=== PATIENT | female | born 2000 | race Caucasian/White ===

== ENCOUNTER 2021-01-28 08:28 | Outpatient (REF) | payer OTHER, SELFPAY | END 2021-01-28 08:29 | disposition home or self-care (01) | LOC: HO.LAB 08:28 | PROVIDERS: Visit Provider Internal Medicine | DX: Z20.822 Contact with and (suspected) exposure to COVID-19 (principal) | CPT/HCPCS: C9803; U0003; U0005 ==

== ENCOUNTER 2021-11-26 09:20 | Emergency (ER) | payer OTHER, SELFPAY ==
--- NOTE | ~2021-11-26 | XR_ITS ---
EXAMINATION: XR SHOULDER RIGHT XR HUMERUS RIGHT CLINICAL INFORMATION: Pain of upper extremity. Injury. COMPARISON: None TECHNIQUE: Right shoulder, 3 views Right humerus, 2 views FINDINGS: Right shoulder: Bones, joints and soft tissues are normal. The humeral head is well-positioned over the intact glenoid. No calcium deposition within rotator cuff tendons. The visualized right lung is normal. Right humerus: The humerus has normal shape, and alignment is normal at the glenohumeral joint and elbow. No fracture or periostitis. The soft tissues are normal. XR/XR shoulder RT min 2V IMPRESSION: Normal radiographic examinations of the right shoulder and right upper extremity.
--- NOTE | ~2021-11-26 | XR_ITS ---
EXAMINATION: XR SHOULDER RIGHT XR HUMERUS RIGHT CLINICAL INFORMATION: Pain of upper extremity. Injury. COMPARISON: None TECHNIQUE: Right shoulder, 3 views Right humerus, 2 views FINDINGS: Right shoulder: Bones, joints and soft tissues are normal. The humeral head is well-positioned over the intact glenoid. No calcium deposition within rotator cuff tendons. The visualized right lung is normal. Right humerus: The humerus has normal shape, and alignment is normal at the glenohumeral joint and elbow. No fracture or periostitis. The soft tissues are normal. XR/XR humerus RT IMPRESSION: Normal radiographic examinations of the right shoulder and right upper extremity.
[2021-11-26 09:42] VITALS: BP 118/68; PULSE 95; RESP 18; TEMP 36.7; O2SAT 100; BMI 20.2
--- NOTE | 2021-11-26 11:31 | ED_ITS ---
HPI - Extremity Problem General Chief complaint: Extremity Injury, Upper <Alesia Marie FAHAD Serrato - Last Filed: 11/26/21 15:55> Stated complaint: Dislocated R shoulder <Alesiadari Serrato CNP - Last Filed: 11/26/21 15:55> Time Seen by Provider: 11/26/21 10:50 <Alesia Serrato CNP - Last Filed: 11/26/21 15:55> Source: patient <Alesia Adair FAHAD Serrato - Last Filed: 11/26/21 15:55> Mode of arrival: ambulatory <Alesia Tovarmargy Serrato CNP Sirisha Last Filed: 11/26/21 15:55> Limitations: no limitations <Alesia Tovarmargy Serrato CNP - Last Filed: 11/26/21 15:55> History of Present Illness HPI Narrative: Patient presents emergency department for evaluation of right shoulder pain. Reports 5 days ago at work a heavy box fell onto her right shoulder. The following day she subsequently developed pain. Three days ago she was evaluated at an urgent care and given a prescription for a muscle relaxer, uncertain of the name, but states that this did not improve her pain. She is having difficulty moving the arm/shoulder. Denies any numbness or tingling to the extremity, no cold sensation to the lower arm. Denies any prior injury to the shoulder <Alesiadari Serrato CNP - Last Filed: 11/26/21 15:55> Related Data Home medications: Previous Rx's Medication Instructions Recorded naproxen 500 mg tablet 500 mg PO BID PRN pain 5 days #10 11/26/21 tabs <Alesiadari Serrato CNP - Last Filed: 11/26/21 15:55> Allergies/Adverse reactions: Allergies Allergy/AdvReac Type Severity Reaction Status Date / Time No Known Allergies Allergy Verified 11/26/21 09:42 <Alesia Serrato CNP - Last Filed: 11/26/21 15:55> Review of Systems Review of Systems: Musculoskeletal: Positive shoulder pain <FAHAD Church Last Filed: 11/26/21 15:55> [facility] Past Medical History Attestation statement: The following information was validated with the patient. <Alesia Serrato CNP - Last Filed: 11/26/21 15:55> Source: old records reviewed <Alesia SerratoFAHAD - Last Filed: 11/26/21 15:55> Social History Social History: Social History Advance Directives: No Advance Directives Information Provided: No <Alesia SerratoFAHAD - Last Filed: 11/26/21 15:55> Physical Exam Vital Signs: Vital Signs: Last Vital Signs Temp 98.1 F 11/26/21 09:42 Pulse 95 11/26/21 09:42 Resp 18 11/26/21 09:42 BP 118/68 11/26/21 09:42 Pulse Ox 100 11/26/21 09:42 BMI result Body Mass Index 20.2 <Alesia SerratoFAHAD - Last Filed: 11/26/21 15:55> Vital Signs: Last Vital Signs Temp 98.1 F 11/26/21 09:42 Pulse 95 11/26/21 09:42 Resp 18 11/26/21 09:42 BP 118/68 11/26/21 09:42 Pulse Ox 100 11/26/21 09:42 BMI result Body Mass Index 20.2 <Kamari Ibrahim MD - Last Filed: 11/26/21 11:55> Appearance: Alert.?Oriented to person, place and time. No acute distress.?Normal affect. Eyes: Pupils equal, round and reactive to light.? ENT: Pharynx normal.?? Neck: Normal inspection.? Neck supple.?? CVS: Heart sounds normal. Normal heart rate and rhythm.? Pulses normal.?? Respiratory: No respiratory distress.? Lung sounds clear to auscultation bilaterally?? Abdomen: Soft and non-tender. Normoactive bowel sounds. Skin: Skin warm and dry.? Normal skin color.? Extremities: No lower extremity edema.? Right shoulder with no bony step-offs or crepitus, point tenderness along the biceps tendon, decreased AROM and pain with minimal movement Neuro: Moves all extremities spontaneously. Sensation intact bilaterally. No focal neuro deficits. Ambulates with normal steady gait. <Alesia MolinaFAHAD monique - Last Filed: 11/26/21 15:55> Course Course Course Narrative: Patient is a 21-year-old female being evaluated for traumatic right shoulder pain. XR of the right shoulder and humerus are unremarkable for any acute fracture or dislocation. Not consistent with AC joint separation. Physical exam consistent with biceps tendinitis and bursitis. patient denies any possibility of , had testing 3 days ago. Patient to receive ketorolac IM while in the emergency department. Discussed plan of care for discharge home with anti-inflammatories, follow up with primary care provider, discussed worrisome signs and symptoms return back to emergency department for, gentle stretching and exercise, all questions were answered. <Alesia Serrato CNP - Last Filed: 11/26/21 15:55> Reevaluation(s) Reevaluation #1: I agree with the history and physical and plan. patient with biceps tendonitis and shoulder bursitis. Will treat with high dose antiiflammatories <Kamari Ibrahim MD - Last Filed: 11/26/21 11:55> Time: 11:55 <Kamari Ibrahim MD - Last Filed: 11/26/21 11:55> MDM - Extremity (Nontraumatic) Imaging Data XR R shoulder: Radiologist's impression: FINDINGS: Right shoulder: Bones, joints and soft tissues are normal. The humeral head is well-positioned over the intact glenoid. No calcium deposition within rotator cuff tendons. The visualized right lung is normal. Right humerus: The humerus has normal shape, and alignment is normal at the glenohumeral joint and elbow. No fracture or periostitis. The soft tissues are normal.? XR/XR shoulder RT min 2V IMPRESSION: Normal radiographic examinations of the right shoulder and right upper extremity.? <Alesia Serrato CNP - Last Filed: 11/26/21 15:55> Discharge Plan Discharge Clinical Impression: Biceps tendinitis, Bursitis <Alesia Serrato CNP - Last Filed: 11/26/21 15:55> Patient Disposition: Home, Self-Care <Alesia Serrato CNP - Last Filed: 11/26/21 15:55> Instructions: Tendinitis (ED), Exercises for Shoulder Flexion and Extension (ED), Exercises for Internal and External Shoulder Rotation (ED), Exercises for Shoulder Abduction and Adduction (ED) <Alesia Serrato CNP - Last Filed: 11/26/21 15:55> Additional Instructions: You have been given a prescription for anti-inflammatories to use twice daily, do not use additional [id number] ibuprofen/Motrin, Aleve, or aspirin while taking this medication. You may continue using ice/heat. Engage in gentle stretching and movement of your shoulder to prevent any stiffening. Follow-up with your primary care provider as needed. <Alesia Serrato CNP - Last Filed: 11/26/21 15:55> Prescriptions: New naproxen 500 mg tablet 500 mg PO BID PRN (Reason: pain) 5 Days Qty: 10 0RF <Alesia Serrato CNP - Last Filed: 11/26/21 15:55> Stand Alone Forms: Work/School Release <Alesia Serrato CNP - Last Filed: 11/26/21 15:55> Interventions: ED Discharge Assessment Last Done: 11/26/21 12:30 <Alesia Serrato CNP - Last Filed: 11/26/21 15:55> Discharge Date/Time: 11/26/21 12:31 <Alesia Serrato CNP - Last Filed: 11/26/21 15:55>
[2021-11-26] MEDS: Ketorolac Tromethamine 60 MG/2 ML VIAL IM (12:19)
== END 2021-11-26 12:31 | disposition home or self-care (01) ==
PROVIDERS: Emergency Provider Emergency Medicine
DX: Z04.2 Encounter for examination and observation following work accident (principal); M75.21 Bicipital tendinitis, right shoulder; M75.51 Bursitis of right shoulder
CPT/HCPCS: 73030; 73060; 96372; 99283; 99284; J1885

== ENCOUNTER 2022-06-05 09:23 | Emergency (ER) | payer OTHER, SELFPAY ==
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
--- NOTE | ~2022-06-05 | CT_ITS ---
CT facial bones wo IV con, CT head/brain wo IV con CLINICAL INFORMATION: Reason for Exam facial trauma COMPARISON: No prior CT scan available for comparison. TECHNIQUE: Department standard protocol. This CT examination was performed using dose optimization techniques as appropriate, variously including the following: *Automated exposure control *Adjustment of mA and/or kV according to patient size (this includes techniques or standardized protocols for targeted exams where dose is matched to indication/reason for exam; i.e. extremities or head) *Use of iterative reconstruction technique DLP: 582 mGy-cm FINDINGS: CEREBRAL HEMISPHERES: There is no evidence of intra-axial or extra-axial mass, hemorrhage or acute infarct. BRAIN PARENCHYMA: Normal akins-white matter differentiation. SUBDURAL SPACE: No bleed. BASAL GANGLIA AND PINEAL GLAND: Unremarkable VENTRICLES: Symmetric and normal in size. CEREBELLUM AND BRAINSTEM: No space-occupying mass, hemorrhage or acute infarct. CEREBELLOPONTINE ANGLES: No lesion found. ORBITS: No intraorbital mass. VESSELS: Unremarkable SKULL BASE: Unremarkable INCLUDED SINUSES AT SKULL BASE: Clear SKULL AND SKIN: No fracture or bone lesion found. CT FACIAL BONES BONES: Skull base, orbital bones, nasal bones, maxillary bones, mandibles, zygomatic arches, and included cervical vertebrae are normal. ORBITS: Globes are symmetric. Orbital structures are normal. SALIVARY GLANDS: Unremarkable there are nasal and lingula piercing rings SINUSES: Paranasal sinuses are clear. There is mild mucosal thickening occluding the left ostiomeatal unit CT/CT head/brain wo IV con IMPRESSION: * No CT evidence of intracranial space-occupying mass, bleed or infarct. * No facial bone fractures. * Mild mucosal thickening occluding the left ostiomeatal unit left maxillary sinus.
[2022-06-05 10:21] VITALS: BP 151/89; PULSE 87; RESP 18; TEMP 36.1; O2SAT 100; BMI 20.2
[2022-06-05] MEDS: Acetaminophen 325 MG TABLET 650 MG PO (10:29)
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
[2022-06-05 12:40] LABS: UPreg QC Valid YES; Urine Pregnancy NEGATIVE (NEGATIVE)
== END 2022-06-05 15:14 | disposition left against medical advice (07) ==
PROVIDERS: Physician Assistant; Emergency Provider Emergency Medicine
DX: S09.90XA Unspecified injury of head, initial encounter (principal); Y00.XXXA Assault by blunt object, initial encounter; Y93.89 Activity, other specified; Y92.512 Supermarket, store or market as the place of occurrence of the external cause; Y99.0 Civilian activity done for income or pay
CPT/HCPCS: 70450; 70486; 81025; 99283; 99284